=== PATIENT | female | born 1995 | race Caucasian/White ===

== ENCOUNTER 2024-03-29 19:01 | Emergency (ER) | payer OTHER, SELFPAY ==
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
[2024-03-29 19:13] VITALS: BP 150/96; PULSE 82; RESP 16; TEMP 36.8; O2SAT 98
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
[2024-03-29] MEDS: KETOROLAC 30 MG/ML VIAL (*BKC) IM (22:02)
[2024-03-29] MEDS: Please add drug allergy info to patient profile. 1 EACH XX (22:03)
== END 2024-03-29 23:11 | disposition home or self-care (01) ==
PROVIDERS: Emergency Provider Emergency Medicine; PCP Internal Medicine
DX: S13.4XXA Sprain of ligaments of cervical spine, initial encounter (principal); V43.53XA Car driver injured in collision with pick-up truck in traffic accident, initial encounter
CPT/HCPCS: 72125; 81025; 96372; 99284; J1885